=== PATIENT | female | born 1970 | race Caucasian/White ===

== ENCOUNTER 2019-02-14 13:41 | Emergency (ER) | payer SELFPAY, OTHER, MEDICAID ==
[2019-02-14 15:38] LABS: ADD MAN DIFF? NO
[2019-02-14 15:41] LABS: WHITE BLOOD COUNT 8.5 10^3/ul (4.8-10.8)
[2019-02-14 15:41] LABS: BASOPHIL # 0.1 10^3/ul (0.0-0.1); BASOPHILS % 0.6 % (0.0-2.0); EOSINOPHILS # 0.1 10^3/ul (0.0-0.5); EOSINOPHILS % 0.6 % (0.0-7.0); HEMATOCRIT 40.7 % (37.0-47.0); HEMOGLOBIN 13.6 g/dl (12.0-16.0); LYMPHOCYTES # 2.6 10^3/ul (0.8-2.9); LYMPHOCYTES % 30.3 % (15.0-51.0); MEAN CORPUSCULAR HEMOGLOBIN 27.7 pg (29.0-33.0); MEAN CORPUSCULAR HGB CONC 33.4 g/dl (32.0-37.0); MEAN CORPUSCULAR VOLUME 82.9 fl (82.0-101.0); MEAN PLATELET VOLUME 10.8 fl (7.4-10.4); MONOCYTE # 0.9 10^3/ul (0.3-0.9); MONOCYTES % 10.4 % (0.0-11.0); NEUTROPHIL # 4.9 10^3/ul (1.6-7.5); NEUTROPHILS % 57.9 % (39.0-77.0); PLATELET COUNT 282 10^3/UL (140-415); RED BLOOD COUNT 4.91 10^6/ul (4.20-5.40); RED CELL DISTRIBUTION WIDTH 13.6 % (11.5-14.5)
[2019-02-14] MEDS: KETOROLAC 30 MG INJ IV (15:56)
[2019-02-14 16:02] LABS: ANION GAP 9 (5-13); BLOOD UREA NITROGEN 13 mg/dl (7-20); CARBON DIOXIDE 28 mmol/L (21-31); CHLORIDE 102 mmol/L (97-110); CREATININE 0.56 mg/dl (0.44-1.00); Estimated GFR > 60 mL/min (>60); GLUCOSE 122 mg/dl (70-220); SODIUM 139 mmol/L (135-144)
[2019-02-14 16:14] LABS: TROPONIN-I < 0.012 ng/ml (0.000-0.120)
[2019-02-14] MEDS: POTASSIUM CHLORIDE (SR) 20 MEQ TAB PO (17:35)
== END 2019-02-14 17:58 | disposition home or self-care (01) ==
LOC: E/R 13:41
DX: R07.9 Chest pain, unspecified (principal)
CPT/HCPCS: 36415; 71045; 80048; 81025; 84484; 85025; 93005; 96374; 99285-25